=== PATIENT | female | born 1965 | race Caucasian/White ===

== ENCOUNTER 2019-01-15 13:50 | Emergency (ER) | payer BC, SELFPAY ==
[2019-01-15 13:51] VITALS: BP 181/99; PULSE 121; RESP 18; TEMP 36.8; O2SAT 96; BMI 32.8
[2019-01-15 14:09] VITALS: BP 159/84; PULSE 110; RESP 18; TEMP 36.8; O2SAT 95
--- NOTE | 2019-01-15 14:25 | CT_ITS ---
STUDY: CT ABDOMEN AND PELVIS WITHOUT CONTRAST REASON FOR EXAM: Female, 53 years old. Right flank pain RADIATION DOSAGE (If Supplied By Facility): CTDIvol = ( 17.40 ) mGy, DLP = ( 986.86 ) mGycm TECHNIQUE: Transaxial images were obtained from the dome of the diaphragm to the symphysis pubis without oral contrast, and without intravenous contrast. Sagittal and coronal images were reconstructed. Individualized dose optimization techniques were used for this CT. COMPARISON: None. FINDINGS: The visualized lung bases are unremarkable. The visualized portions of the heart are within normal limits. There is decreased attenuation of the liver consistent with steatosis. Normal gallbladder and extrahepatic biliary system. Normal spleen. Normal pancreas. Normal bilateral adrenal glands. Normal right kidney. Normal left kidney. Normal visualized stomach. Normal small intestine. There are multiple colonic diverticula consistent with diverticulosis. The appendix is visualized and appears normal. Normal abdominal aorta. Normal inferior vena cava. Normal retroperitoneum. Normal urinary bladder. There is absence of the uterus consistent with a prior hysterectomy. Normal abdominal wall. There are diffuse degenerative changes of the visualized lumbar spine. CT/Abdomen/Pelvis without Cont IMPRESSION: 1. No hydronephrosis or urinary tract calcifications. 2. Diverticulosis without evidence of diverticulitis. 3. Normal CT appearance of the appendix. 4. Hysterectomy. 5. Hepatic steatosis. Electronically Signed: Nick Conley MD at 15:16 EST , Service support ,
--- NOTE | 2019-01-15 14:27 | ED.DCSUM_ITS ---
- ER Visit Summary Date of Service: 01/15/19 Chief Complaint: Right flank pain History of Present Illness: The patient is a 53 F continuous dull right flank pain past 3 days of intermittent sharp pains that would double her over. States pain now rating to her groin since yesterday. Transient nausea no vomiting. No urinary symptoms. Saw urgent care in [place] yesterday reports a UA was performed which was negative and sent home. Took Motrin 4 hours ago pain currently a 5. No history of kidney stones. History of hysterectomy in the past. On meloxicam for arthritis. No other complaints. Physical Examination: General: Alert and oriented ?3, no acute distress HEENT: Normocephalic, atraumatic. Moist mucosa membranes Neck: supple, nontender. Cardiovascular: Regular rate and rhythm, no murmurs Respiratory: Normal breath sounds, symmetric, no distress Abdomen: Soft, nontender, nondistended. Negative Hernandez's or McBurney's tenderness. Back: Right CVA tenderness without rash. Extremities: Nontender, no edema, pulses intact ?4 Neuro: no focal neurological deficits. Test Results: WBC 11.5 creatinine 0.78. Urine with leukocytes blood, white blood cell 3+ bacteria. Urine culture sent. Flank CT no kidney stones, normal appendix, no acute process. Emergency Department Course and Treatment: Patient for flank pain, renal colic workup initially given morphine. Workup negative for stones. She did have UTI find white count 11.5. Rocephin given additional Toradol. Discussed with patient monitoring for rash for possible shingles with tenderness to palpation on the skin. She was placed on Keflex continue ibuprofen short prescription for [place]. Signs and symptoms discussed to return. All questions were answered. Treatment Plan: [] Disposition: Discharge Impression: 1. Urinary tract infection 2. Right flank pain This note was generated with [employer] dictation software. It may contain incorrect words, spelling, and punctuation that were not noted in review of the chart prior to signing ED Disposition - Plan for ED Patient: Disposition: Home or Assisted Living Diagnosis: Urinary tract infection, Right flank pain Instructions: ED Flank Pain Uncertain Cause, ED UTI Cystitis Female Prescriptions: Hydrocodone Bitart/Apap 5-325 [[place] 5MG-325MG] 1 tablet PO Q6H PRN PRN 3 Days #10 tablet PRN Reason: Pain Cephalexin [Keflex] 500 mg PO Q12 #14 capsule Referrals: Cecilia Chung MD [Primary Care Provider] - 3-5 Days
[2019-01-15 14:39] LABS: Absolute Lymphocyte Count 2.68 X10^3/ul (0.83-4.51); Absolute Neutrophil Count 7.5 X10^3/uL (2.0-7.7); Basophil# 0.08 X10^3/uL; Basophil% 0.7 % (0-1); Eosinophil# 0.22 X10^3/uL; Eosinophils% 1.9 % (0-5); Hematocrit 42.1 % (37-47); Hemoglobin 14.4 g/dl (12.0-15.0); Lymphocyte # 2.68 X10^3/ul (4.0); Lymphocyte % 23.3 % (19-41); Mean Corp Hgb Conc 34.2 g/gl (32-36); Mean Corpuscular Hgb 30.3 pg (27.0-32.0); Mean Corpuscular Volume 88.4 fL (81-99); Mean Platelet Vol. 10.3 fl (6.2-12.0); Monocyte# 0.98 X10^3/uL; Monocyte% 8.5 % (0-10); Neutrophil # 7.48 X10^3/uL (2.7-7.7); Neutrophil % 65.3 % (47-70); Platelet Count 350 K/mm3 (150-450); RBC Distribution Width CV 12.1 % (11.6-14.6); RBC Distribution Width SD 38.2 fl (35.1-43.9); Red Blood Count 4.76 M/mm3 (4.2-5.4); White Blood Count 11.5 K/mm3 (4.4-11.0)
[2019-01-15 14:40] LABS: POSITIVE COUNT NO; POSITIVE DIFFERENTIAL NO; POSITIVE MORPHOLOGY NO
[2019-01-15] MEDS: Morphine 4 MG/ML Syringe IV (14:40)
[2019-01-15] MEDS: 0.9% Normal Saline 1,000 ML 250 ML IV (14:40)
[2019-01-15 14:49] LABS: Anion Gap 10 (5-15); BUN 15 mg/dL (7-18); BUN/Creat Ratio 20.1 RATIO (10-20); Calcium,Total 8.7 mg/dL (8.5-10.1); Chloride 103 mmol/L (98-107); Creatinine, Serum 0.75 mg/dL (0.55-1.02); EST Glomerular Filtration Rate 86 mL/min (>60); Est Glom Filt Rate - Afr Amer 104 mL/min (>60); Estimated Creatinine Clearance 83.39 ml/min; Glucose 253 mg/dL (74-106); Potassium 3.7 mmol/L (3.5-5.1); Sodium Level 136 mmol/L (136-145)
[2019-01-15 14:52] LABS: Red Blood Cells-Urine 0 SEEN /hpf (0-5)
[2019-01-15 14:54] LABS: Color, Urine Yellow (Yellow); Glucose, Dipstick 250 mg/dl (Normal); Ketone-Dipstick 5 mg/dl (Negative); Leukocyte Esterase-Dipstick 500 /ul (Negative); Nitrite-Dipstick Negative (Negative); Occult Blood-Urine 10 /ul (Negative); Protein-Dipstick 100 mg/dl (Negative); Specific Gravity, Urine 1.025 (1.002-1.030); Urine Clarity Sl. Cloudy (Clear); Urine Urobilinogen 1 mg/dl (Normal)
[2019-01-15 14:56] LABS: Urine Bilirubin Dipstick 1 mg/dL (Negative)
[2019-01-15 15:05] LABS: Bacteria 3+ /hpf (None Seen); Mucous, Urine 1+ /hpf (<or=2+); Squamous Epithelial Cells - UA 5-10 SEEN /hpf (5-10); White Blood Cells 5-10 SEEN /hpf (0-5)
[2019-01-15 15:35] VITALS: BP 165/89; PULSE 104; RESP 18; TEMP 36.9; O2SAT 93
[2019-01-15 16:04] VITALS: BP 158/87; PULSE 98; RESP 18; TEMP 36.8; O2SAT 95
[2019-01-15] MEDS: Ketorolac 30 MG/ML Syringe IV (16:29)
[2019-01-15] MEDS: Ceftriaxone 1 GM/50 ML BAG IV (17:09)
[2019-01-15 17:21] VITALS: BP 148/87; PULSE 95; RESP 18; O2SAT 96
== END 2019-01-15 17:31 | disposition home or self-care (01) ==
PROVIDERS: Emergency Provider Emergency Medicine; Family Provider Internal Medicine; PCP Internal Medicine
DX: N39.0 Urinary tract infection, site not specified (principal); R10.9 Unspecified abdominal pain; E11.9 Type 2 diabetes mellitus without complications; Z79.84 Long term (current) use of oral hypoglycemic drugs; Z72.0 Tobacco use
CPT/HCPCS: 74176; 80048; 81001; 85025; 87086; 87088; 96361; 96365; 96375; 99283; J7030; A4216

== ENCOUNTER → 2023-07-09 | Outpatient (CLI) | payer BC, SELFPAY ==
[2023-07-09 12:05] LABS: Absolute Lymphocyte Count 2.46 X10^3/uL (0.83-4.51); Absolute Neutrophil Count 7.1 X10^3/uL (2.0-7.7); Basophil# 0.09 X10^3/uL; Basophil% 0.8 % (0-1); Eosinophil# 0.22 X10^3/uL; Eosinophils% 2.1 % (0-5); Lymphocyte # 2.46 X10^3/ul (0.83-4.51); Lymphocyte % 22.9 % (19-41); Mean Corp Hgb Conc 32.5 g/dL (32-36); Mean Corpuscular Hgb 30.1 pg (27.0-32.0); Mean Corpuscular Volume 92.6 fL (81-99); Mean Platelet Vol. 9.5 fl (6.2-12.0); Monocyte# 0.85 X10^3/uL; Monocyte% 7.9 % (0-10); NRBC Flagged by Analyzer 0 % (0-5); Neutrophil # 7.07 X10^3/uL (2.7-7.7); Neutrophil % 65.9 % (47-70); Platelet Count 418 K/mm3 (150-450); RBC Distribution Width CV 12.9 % (11.6-14.6); RBC Distribution Width SD 43.9 fl (35.1-43.9); Red Blood Count 4.32 M/mm3 (4.2-5.4); White Blood Count 10.7 K/mm3 (4.4-11.0)
[2023-07-09 12:10] LABS: Erythrocyte Sedimentation Rate 21 mm/hr (0-30)
[2023-07-09 12:25] LABS: CRP < 2.90 mg/L (0.0-3.0)
== END | disposition home or self-care (01) ==
PROVIDERS: PCP Internal Medicine; Visit Provider Specialist
DX: M70.52 Other bursitis of knee, left knee (principal)
CPT/HCPCS: 36415; 85025; 85652; 86140